=== PATIENT | female | born 1940 | race Native Hawaiian/Other Pacific Islander ===

== ENCOUNTER 2018-02-27 08:10 | Outpatient (CLI) | payer MEDICARE, OTHER | END 2018-02-27 08:11 | disposition home or self-care (01) | LOC: C.RADIC 08:10 ==

== ENCOUNTER 2018-06-17 07:57 | Inpatient (IN) | payer MEDICARE, OTHER ==
--- NOTE | 2018-06-17 08:26 | C.PDOC ---
History Of Present Illness 77 year old female with PMHx of hypertension (takes carvedilol), thyroid issue, hyperlipidemia, COPD( not on home oxygen) presents to ED with complaint of diffuse weakness. Per patient's daughter and patient, she had a PET scheduled for today at [facility] with Dr. Vásquez for elevated ESR. However, she woke up at 0500 this morning when she felt sweaty and diffusely weak. Patient states that this is a first time occurrence. Patient also complains of a mild headache. She notes that overall headache has resolved and wasn't the worse of her life with no sudden onset. Weakness is described as diffuse and non-focal. She states that her sweats have greatly improved. Patient denies slurred speech, unilateral weakness, facial droop, chest pain, constipation, diarrhea, dark/ bloody stool, vaginal discharge, rash, fever, chills, or cough. Time Seen by Provider: 06/17/18 08:08 Chief Complaint (Nursing): Medical Clearance History Per: Patient, Family (daughter) History/Exam Limitations: no limitations Onset/Duration Of Symptoms: Hrs (4) Current Symptoms Are (Timing): Better Past Medical History Reviewed: Historical Data, Nursing Documentation, Vital Signs Vital Signs: Last Vital Signs Temp Pulse 96 H 06/17/18 08:22 Resp 16 06/17/18 08:22 BP 100/59 L 06/17/18 08:22 Pulse Ox 99 06/17/18 08:22 - Medical History PMH: COPD, HTN, Hyperlipidemia Surgical History: No Surg Hx Family History: States: Unknown Family Hx Review Of Systems Constitutional: Positive for: Weakness. Negative for: Fever, Chills Eyes: Negative for: Pain, Vision Change ENT: Negative for: Ear Pain, Ear Discharge, Nose Congestion, Mouth Pain, Throat Pain, Throat Swelling Cardiovascular: Negative for: Chest Pain, Edema Respiratory: Negative for: Cough Gastrointestinal: Negative for: Nausea, Vomiting, Abdominal Pain, Diarrhea, Constipation, Melena, Hematochezia, Hematemesis Genitourinary: Negative for: Dysuria, Frequency, Hematuria, Vaginal Discharge, Rash Musculoskeletal: Negative for: Neck Pain, Shoulder Pain, Arm Pain Skin: Negative for: Rash Neurological: Negative for: Numbness, Change in Speech, Confusion, Seizures, Altered Mental Status, Headache, Other (unilateral weakness, slurred speech, facial droop) Psych: Negative for: Anxiety, Depression, Psychosis Physical Exam - Physical Exam Appears: Non-toxic, No Acute Distress Skin: Warm, Dry Head: Atraumatic, Normacephalic Eye(s): bilateral: Normal Inspection, PERRL, EOMI Oral Mucosa: Moist Neck: Normal ROM, Trachea Midline, Supple, No Other ( meningeal signs- negative kernig's and brudzinskis) Chest: Symmetrical, No Deformity Cardiovascular: Rhythm Irregular, Other (irregularly irregular) Respiratory: Normal Breath Sounds, No Decreased Breath Sounds, No Accessory Muscle Use, No Rales, No Rhonchi, No Stridor, No Wheezing Gastrointestinal/Abdominal: Normal Exam, Soft, No Tenderness, No Mass, No Distention Back: Normal Inspection, No CVA Tenderness, No Vertebral Tenderness Extremity: Normal ROM, Capillary Refill (<2 seconds), No Swelling (bilateral lower extremities) Extremity: Bilateral: Atraumatic, Normal Color And Temperature, Normal ROM Pulses: Left Dorsalis Pedis: Normal, Right Dorsalis Pedis: Normal Neurological/Psych: Oriented x3, Normal Speech, Normal Cognition, Normal Cranial Nerves, No Cerebellar Signs, Normal Motor, Normal Sensation, Normal Reflexes Gait: Steady Other Neurological Findings: No Facial Palsy ED Course And Treatment - Laboratory Results Result Diagrams: 06/17/18 10:08 06/17/18 10:08 ECG: Interpreted By Me, Viewed By Me ECG Rhythm: Atrial Fibrillation Rate From EC O2 Sat by Pulse Oximetry: 99 (in RA) Pulse Ox Interpretation: Normal Medical Decision Making Medical Decision Making: Impression: 77 year old female with PMHx of hypertension (carvadilol), thyroid issue, hyperlipidemia, COPD( not on home oxygen) presents to ED with complaint of diffuse weakness. Likely new onset afib given no previous hx of afib. Pt not in afib w/ rvr and pressures mildly decreased, will give gentle fluids and seek labs, imaging and admission. Initial Plan: Type and Screen VBG Head CT EKG Labs ordered with cardiac enzymes IV fluids blood culture UA glucose POC EK bpm. A-fib. No STEMI. No previous comparison. MDM: New onset A-fib. Infectious vs electrolyte abnormalities. 1020 CBC largely unremarkable CTH unremarkable paged Dr. Damon for admission Pt in NAD 1040 Appreciate consult w/ Dr. Nelson: we are to consult Dr. Carlos (CARDS) She accepts admission to her service Pt in NAD agreeable to plan paged Dr. Carlos [phone] Carlos. [phone] appreciate consult w/ Dr. Carlos: Heparin drip ordered. Pt in NAD, agreeable to plan Disposition - Disposition Disposition: HOSPITALIZED Disposition Time: 10:40 Condition: STABLE - Clinical Impression Clinical Impression: Afib - Scribe Statement The provider has reviewed the documentation as recorded by the Scribe (Tiffany Arcos) All medical record entries made by the Scribe were at my direction and personally dictated by me. I have reviewed the chart and agree that the record accurately reflects my personal performance of the history, physical exam, medical decision making, and the department course for this patient. I have also personally directed, reviewed, and agree with the discharge instructions and disposition.
[2018-06-17] MEDS ORDERED: Sodium Chloride 0.9% 1,000 ML ONE (09:28)
--- NOTE | 2018-06-17 09:46 | CT ---
Date of service: 06/17/2018 PROCEDURE: CT HEAD WITHOUT CONTRAST. HISTORY: Headache COMPARISON: None available. TECHNIQUE: Axial computed tomography images were obtained through the head/brain without intravenous contrast. Radiation dose: Total exam DLP = 869.99 mGy-cm. This CT exam was performed using one or more of the following dose reduction techniques: Automated exposure control, adjustment of the mA and/or kV according to patient size, and/or use of iterative reconstruction technique. FINDINGS: HEMORRHAGE: No intracranial hemorrhage. BRAIN: There are mild chronic microangiopathic changes. There is no mass, mass effect or abnormal extra-axial fluid collection. There is no territorial infarction. The midline sagittal structures are normal. There are senile symmetric bilateral basal ganglia calcifications. There are coarse atherosclerotic calcifications in the cavernous carotid arteries. VENTRICLES: There is mild age-related global parenchymal volume loss and proportionate enlargement of the ventricles and cortical sulci. CALVARIUM: There is no calvarial fracture or extracranial soft tissue swelling. PARANASAL SINUSES: Predominantly clear. MASTOID AIR CELLS: Predominantly clear. OTHER FINDINGS: None. IMPRESSION: No acute intracranial abnormality. Mild chronic microangiopathic changes and mild age-related global parenchymal volume loss.
[2018-06-17 09:53] LABS: VENOUS BLOOD GAS BASE EXCESS -1.1 mmol/L (0.0-2.0); VENOUS BLOOD GAS PCO2 48 mmHg (40-60); VENOUS BLOOD GAS PO2 21 mm/Hg (30-55); VENOUS BLOOD PH 7.33 (7.32-7.43)
[2018-06-17] MEDS: Sodium Chloride 0.9% 1,000 ML IV SCH ×2 (10:10→21:00)
[2018-06-17 10:13] LABS: BASO % 0.4 % (0.0-2.0); EOS % 0.8 % (0.0-4.0); HEMOGLOBIN 10.8 g/dL (11.0-16.0); LYMPH # 0.7 K/uL (1.0-4.3); MEAN CELL VOLUME 105.3 fL (81.0-99.0); MEAN CORPUSCULAR HEMOGLOBIN 35.6 pg (27.0-31.0); MEAN CORPUSCULAR HGB CONC 33.8 g/dL (33.0-37.0); MEAN PLATELET VOLUME 7.7 fL (7.2-11.7); MONO # 0.3 K/uL (0.0-0.8); MONO % 5.3 % (0.0-10.0); NEUT # 4.8 K/uL (1.8-7.0); NEUT % 81.5 % (50.0-75.0); RBC 3.03 Mil/uL (3.80-5.20); RED CELL DISTRIBUTION WIDTH 12.9 % (11.5-14.5); WHITE BLOOD COUNT 5.9 K/uL (4.8-10.8)
[2018-06-17 10:20] LABS: INR 1.1; PROTHROMBIN TIME 12.1 SECONDS (9.7-12.2)
[2018-06-17 10:26] LABS: ALB/GLOB RATIO 1.1 (1.0-2.1); ALBUMIN 3.9 g/dL (3.5-5.0); ALT/SGPT 128 U/L (9-52); AST/SGOT 282 U/L (14-36); BLOOD UREA NITROGEN 28 mg/dL (7-17); CALCIUM 8.9 mg/dl (8.6-10.4); GFR NON-AFRICAN AMERICAN 53; LIPASE 210 U/L (23-300)
[2018-06-17 10:37] LABS: B-TYPE NATRIURETIC PEPTIDE 551 pg/mL (0-900)
[2018-06-17 10:53] LABS: SQUAMOUS EPITHIAL < 1 /hpf (0-5); URINE BILIRUBIN NEGATIVE (NEGATIVE); URINE BLOOD NEGATIVE (NEGATIVE); URINE CLARITY Clear (Clear); URINE COLOR Yellow (YELLOW); URINE GLUCOSE (UA) NORMAL (Normal); URINE LEUKOCYTE ESTERASE NEG Leu/uL (Negative); URINE PROTEIN NEGATIVE (NEGATIVE); URINE UROBILINOGEN NORMAL mg/dL (0.2-1.0)
--- NOTE | 2018-06-17 11:50 | CP.PCM.CON ---
History of Present Illness - History of Present Illness History of Present Illness: Consultation for evaluation of afib HPI: 77-year-old female with past medical history significant for hypertension on carvedilol hypothyroidism hyperlipidemia COPD presented to the emergency room with complaint of diffuse weakness patient apparently was scheduled for a PET scan by Dr. Wilson for elevated ESR woke up in the morning he had diffuse diaphoresis and generalized weakness on presentation to the ER was noted to be in new onset atrial fibrillation and therefore was admitted for which we are being consulted. Over the course of last few weeks she is noticed increasing worsening diaphoresis with activity. Review of Systems - Review of Systems Systems not reviewed;Unavailable: Acuity of Condition - Constitutional Constitutional: As Per HPI - EENT Eyes: As Per HPI Ears: As Per HPI Nose/Mouth/Throat: As Per HPI - Breasts Breasts: As Per HPI - Cardiovascular Cardiovascular: As Per HPI - Respiratory Respiratory: As Per HPI - Gastrointestinal Gastrointestinal: As Per HPI - Genitourinary Genitourinary: As Per HPI - Reproductive: Female Reproductive:Female: As Per HPI - Menstruation Menstruation: As Per HPI - Musculoskeletal Musculoskeletal: As Per HPI - Integumentary Integumentary: As Per HPI - Neurological Neurological: As Per HPI - Psychiatric Psychiatric: As Per HPI - Endocrine Endocrine: As Per HPI - Hematologic/Lymphatic Hematologic: As Per HPI Past Patient History - Past Social History Smoking Status: Never Smoked - CARDIAC Hx Hypertension: Yes - PULMONARY Hx Chronic Obstructive Pulmonary Disease (COPD): Yes - ENDOCRINE/METABOLIC Hx Hyperthyroidism: Yes - PSYCHIATRIC Hx Substance Use: No - SURGICAL HISTORY Hx Cholecystectomy: Yes Hx Thyroidectomy: Yes - ANESTHESIA Hx Anesthesia: No Hx Anesthesia Reactions: No Meds Allergies/Adverse Reactions: Allergies Allergy/AdvReac Type Severity Reaction Status Date / Time No Known Allergies Allergy Unverified 06/17/18 08:25 - Medications Medications: Current Medications Sodium Chloride (Sodium Chloride 0.9%) 1,000 mls @ 100 mls/hr IV .Q10H JAYCEE Last Admin: 06/17/18 10:10 Dose: 100 mls/hr Heparin Sodium/Sodium Chloride (Heparin 93867 Units/250ml 1/2 Normal Saline) 25,000 units in 250 mls @ 5.879 mls/hr IV .Q24H PRN; Protocol PRN Reason: ADJUST RATE PER PROTOCOL Physical Exam - Constitutional Appears: Well - Head Exam Head Exam: ATRAUMATIC, NORMAL INSPECTION, NORMOCEPHALIC - Eye Exam Eye Exam: EOMI, Normal appearance, PERRL Pupil Exam: NORMAL ACCOMODATION, PERRL - ENT Exam ENT Exam: Mucous Membranes Moist, Normal Exam - Neck Exam Neck exam: Positive for: Normal Inspection - Respiratory Exam Respiratory Exam: Clear to Auscultation Bilateral, NORMAL BREATHING PATTERN - Cardiovascular Exam Cardiovascular Exam: Irregular Rhythm, +S1, +S2, Systolic Murmur - GI/Abdominal Exam GI & Abdominal Exam: Normal Bowel Sounds, Soft. absent: Tenderness - Extremities Exam Extremities exam: Positive for: normal inspection - Back Exam Back exam: NORMAL INSPECTION - Neurological Exam Neurological exam: Alert, CN II-XII Intact, Normal Gait, Oriented x3, Reflexes Normal - Psychiatric Exam Psychiatric exam: Normal Affect, Normal Mood - Skin Skin Exam: Dry, Intact, Normal Color, Warm Results - Vital Signs Recent Vital Signs: Last Vital Signs Temp 97.5 F L 06/17/18 10:00 Pulse 86 06/17/18 10:46 Resp 20 06/17/18 10:46 BP 90/54 L 06/17/18 10:46 Pulse Ox 99 06/17/18 11:17 - Labs Result Diagrams: 06/17/18 10:08 06/17/18 10:08 Labs: Laboratory Results - last 24 hr 06/17/18 06/17/18 06/17/18 08:16 09:49 10:08 WBC 5.9 RBC 3.03 L Hgb 10.8 L Hct 31.9 L MCV 105.3 H MCH 35.6 H MCHC 33.8 RDW 12.9 Plt Count 164 MPV 7.7 Neut % (Auto) 81.5 H Lymph % (Auto) 12.0 L [place] % (Auto) 5.3 Eos % (Auto) 0.8 Baso % (Auto) 0.4 Neut # (Auto) 4.8 Lymph # (Auto) 0.7 L [place] # (Auto) 0.3 Eos # (Auto) 0.0 Baso # (Auto) 0.0 Differential Comment PT INR APTT pO2 21 L VBG pH 7.33 VBG pCO2 48 VBG HCO3 22.2 VBG Total CO2 26.8 VBG O2 Sat (Calc) 37.3 L VBG Base Excess -1.1 L VBG Potassium 4.4 Sodium 134.0 Chloride 102.0 Glucose 152 H Lactate 1.6 Potassium Carbon Dioxide Anion Gap BUN Creatinine Est GFR ( Amer) Est GFR (Non-Af Amer) POC Glucose (mg/dL) 198 H Random Glucose Calcium Magnesium Total Bilirubin AST ALT Alkaline Phosphatase Troponin I NT-Pro-B Natriuret Pep Total Protein Albumin Globulin Albumin/Globulin Ratio Lipase TSH 3rd Generation Venous Blood Potassium 4.4 Urine Color Urine Clarity Urine pH Ur Specific [place] Urine Protein Urine Glucose (UA) Urine Ketones Urine Blood Urine Nitrate Urine Bilirubin Urine Urobilinogen Ur Leukocyte Esterase Urine WBC (Auto) Urine RBC (Auto) Ur Squamous Epith Cells Blood Type Antibody Screen 06/17/18 06/17/18 06/17/18 10:08 10:08 10:08 WBC RBC Hgb Hct MCV MCH MCHC RDW Plt Count MPV Neut % (Auto) Lymph % (Auto) Ferry % (Auto) Eos % (Auto) Baso % (Auto) Neut # (Auto) Lymph # (Auto) Ferry # (Auto) Eos # (Auto) Baso # (Auto) Differential Comment PT 12.1 INR 1.1 APTT 48.0 H pO2 VBG pH VBG pCO2 VBG HCO3 VBG Total CO2 VBG O2 Sat (Calc) VBG Base Excess VBG Potassium Sodium 134 Chloride 100 Glucose Lactate Potassium 4.2 Carbon Dioxide 23 Anion Gap 15 BUN 28 H Creatinine 1.0 Est GFR ( Amer) > 60 Est GFR (Non-Af Amer) 53 POC Glucose (mg/dL) Random Glucose 148 H Calcium 8.9 Magnesium 2.0 Total Bilirubin 0.6 AST 282 H ALT 128 H Alkaline Phosphatase 105 Troponin I < 0.0120 NT-Pro-B Natriuret Pep 551 Total Protein 7.4 Albumin 3.9 Globulin 3.5 Albumin/Globulin Ratio 1.1 Lipase 210 TSH 3rd Generation 2.76 Venous Blood Potassium Urine Color Urine Clarity Urine pH Ur Specific [place] Urine Protein Urine Glucose (UA) Urine Ketones Urine Blood Urine Nitrate Urine Bilirubin Urine Urobilinogen Ur Leukocyte Esterase Urine WBC (Auto) Urine RBC (Auto) Ur Squamous Epith Cells Blood Type O POSITIVE Antibody Screen Negative 06/17/18 10:46 WBC RBC Hgb Hct MCV MCH MCHC RDW Plt Count MPV Neut % (Auto) Lymph % (Auto) Ferry % (Auto) Eos % (Auto) Baso % (Auto) Neut # (Auto) Lymph # (Auto) [place] # (Auto) Eos # (Auto) Baso # (Auto) Differential Comment PT INR APTT pO2 VBG pH VBG pCO2 VBG HCO3 VBG Total CO2 VBG O2 Sat (Calc) VBG Base Excess VBG Potassium Sodium Chloride Glucose Lactate Potassium Carbon Dioxide Anion Gap BUN Creatinine Est GFR ( Amer) Est GFR (Non-Af Amer) POC Glucose (mg/dL) Random Glucose Calcium Magnesium Total Bilirubin AST ALT Alkaline Phosphatase Troponin I NT-Pro-B Natriuret Pep Total Protein Albumin Globulin Albumin/Globulin Ratio Lipase TSH 3rd Generation Venous Blood Potassium Urine Color Yellow Urine Clarity Clear Urine pH 5.0 Ur Specific [place] 1.005 Urine Protein Negative Urine Glucose (UA) Normal Urine Ketones Trace Urine Blood Negative Urine Nitrate Negative Urine Bilirubin Negative Urine Urobilinogen Normal Ur Leukocyte Esterase Neg Urine WBC (Auto) < 1 Urine RBC (Auto) < 1 Ur Squamous Epith Cells < 1 Blood Type Antibody Screen Assessment & Plan (1) Afib Assessment and Plan: rx with IV heparin echo telemetry stress test cont coreg Status: Acute (2) HTN (hypertension) Assessment and Plan: cont coreg Status: Acute (3) Dyslipidemia Assessment and Plan: cont statins Status: Acute (4) Diaphoresis Status: Acute (5) Weakness Status: Acute
[2018-06-17] MEDS ORDERED: Albuterol 0.083% Inhal Sol (2.5 mg/3 mL) UD INH ONE (11:51)
[2018-06-17] MEDS: Levothyroxine 25 MCG TAB PO SCH (12:45)
[2018-06-17] MEDS: Heparin25000 units/250ml 1/2NS 25,000 UNITS/250 ML BAG IV PRN ×2 (12:55→23:55)
[2018-06-17 16:52] VITALS: RESP 20
[2018-06-17] MEDS ORDERED: Ipratropium 0.02% Inhal Soln (0.5 mg/2.5 ml) UD IH SCH (20:00)
[2018-06-18] MEDS ORDERED: Caffeine Citrated **INJ** 20 MG/ML IV ONE (09:29)
[2018-06-18] MEDS: Multivitamin With Minerals Tab PO SCH (10:03)
[2018-06-18] MEDS: Levothyroxine 25 MCG TAB PO SCH (10:14)
[2018-06-18] MEDS: Arformoterol 15 mcg/2 ml Inh Sol INH SCH ×2 (10:40→21:14)
--- NOTE | 2018-06-18 14:58 | CP.PCM.PN ---
Subjective - Date & Time of Evaluation Date of Evaluation: 06/18/18 Time of Evaluation: 14:56 - Subjective Subjective: AST/ALT elevated s/p [place] stress test Objective - Vital Signs/Intake and Output Vital Signs (last 24 hours): Temp Pulse Resp BP Pulse Ox 98.4 F 74 20 129/64 99 06/18/18 07:20 06/18/18 10:40 06/18/18 07:20 06/18/18 10:10 06/18/18 12:11 Intake and Output: 06/18/18 06/18/18 06:59 18:59 Intake Total 250 Balance 250 - Medications Medications: Current Medications Amlodipine Besylate (Norvasc) 5 mg PO DAILY [facility] Last Admin: 06/18/18 10:03 Dose: 5 mg Arformoterol Tartrate (Brovana) 15 mcg INH RQ12@1000,2200 [facility] Last Admin: 06/18/18 10:40 Dose: 15 mcg Aspirin (Aspirin Chewable) 81 mg PO DAILY [facility] Last Admin: 06/18/18 10:03 Dose: 81 mg Benzonatate (Tessalon Perles) 200 mg PO BID [facility] Last Admin: 06/18/18 10:03 Dose: 200 mg Carvedilol (Coreg) 25 mg PO DAILY [facility] Last Admin: 06/18/18 10:10 Dose: 25 mg Sodium Chloride (Sodium Chloride 0.9%) 1,000 mls @ 100 mls/hr IV .Q10H [facility] Last Admin: 06/17/18 21:00 Dose: 100 mls/hr Heparin Sodium/Sodium Chloride (Heparin 73897 Units/250ml 1/2 Normal Saline) 25,000 units in 250 mls @ 5.879 mls/hr IV .Q24H PRN; Protocol PRN Reason: ADJUST RATE PER PROTOCOL Last Admin: 06/17/18 23:55 Dose: 9 units/kg/hr, 4.409 mls/hr Ipratropium [place] (Atrovent) 1 mg IH RBID [facility] Levothyroxine Sodium (Synthroid) 25 mcg PO DAILY [facility] Last Admin: 06/18/18 10:14 Dose: 25 mcg Multivitamins/Minerals (Therapeutic-M Tab) 1 tab PO DAILY [facility] Last Admin: 06/18/18 10:03 Dose: 1 tab Rosuvastatin Calcium (Crestor) 5 mg PO HS [facility] Last Admin: 06/17/18 22:32 Dose: 5 mg - Labs Labs: 06/17/18 10:08 06/17/18 10:08 PT 12.1 SECONDS (9.7-12.2) 06/17/18 10:08 INR 1.1 06/17/18 10:08 APTT 83.0 SECONDS (21-34) H D 06/18/18 06:32 - Constitutional Appears: Well - Head Exam Head Exam: ATRAUMATIC, NORMAL INSPECTION, NORMOCEPHALIC - Eye Exam Eye Exam: EOMI, Normal appearance, PERRL Pupil Exam: NORMAL ACCOMODATION, PERRL - ENT Exam ENT Exam: Mucous Membranes Moist, Normal Exam - Neck Exam Neck Exam: Full ROM, Normal Inspection. absent: Lymphadenopathy - Respiratory Exam Respiratory Exam: Clear to Ausculation Bilateral, NORMAL BREATHING PATTERN - Cardiovascular Exam Cardiovascular Exam: REGULAR RHYTHM, +S1, +S2. absent: Murmur - GI/Abdominal Exam GI & Abdominal Exam: Soft, Normal Bowel Sounds. absent: Tenderness - Extremities Exam Extremities Exam: Full ROM, Normal Capillary Refill, Normal Inspection. absent: Joint Swelling, Pedal Edema - Back Exam Back Exam: NORMAL INSPECTION - Neurological Exam Neurological Exam: Alert, Awake, CN II-XII Intact, Normal Gait, Oriented x3 - Psychiatric Exam Psychiatric exam: Normal Affect, Normal Mood - Skin Skin Exam: Dry, Intact, Normal Color, Warm Assessment and Plan (1) Afib Assessment & Plan: bb cont IV heparin Status: Acute (2) HTN (hypertension) Status: Acute (3) Dyslipidemia Status: Acute (4) Diaphoresis Assessment & Plan: stress test Status: Acute (5) Weakness Status: Acute (6) Elevated LFTs Assessment & Plan: Gi eval Status: Acute
[2018-06-18 17:39] LABS: HDL CHOLESTEROL 49 mg/dL (30-70)
[2018-06-18 17:50] LABS: LDL CHOLESTEROL 49 mg/dL (0-129)
[2018-06-18 18:28] LABS: IRON 90 ug/dL (37-170)
[2018-06-18 18:38] LABS: % IRON SATURATION 33 (20-55); TOTAL IRON BINDING CAPACITY 272 ug/dL (250-450)
[2018-06-18 18:46] LABS: FOLATE > 20.0 ng/mL
--- NOTE | 2018-06-19 03:45 | CARD ---
APPROVED REPORT Date of service: 06/18/2018 EXAM: Two-dimensional and M-mode echocardiogram with Doppler and color Doppler. Other Information Quality : GoodRhythm : INDICATION Atrial Fibrillation COPD RISK FACTORS Hypertension Hyperlipidemia 2D DIMENSIONS IVSd0.8 (0.7-1.1cm)LVDd3.7 (3.9-5.9cm) PWd0.8 (0.7-1.1cm)LA [id number] (18-58mL) LVDs2.2 (2.5-4.0cm)FS (%) 40.4 % LVEF (%)71.9 (>50%)LVEF (Carpio's)69 % M-Mode DIMENSIONS Left Atrium (MM)1.57 (2.5-4.0cm)IVSd1.10 (0.7-1.1cm) Aortic Root2.80 (2.2-3.7cm)LVDd3.76 (4.0-5.6cm) Aortic Cusp Exc.1.53 (1.5-2.0cm)PWd0.78 (0.7-1.1cm) FS (%) 41 %LVDs2.21 (2.0-3.8cm) LVEF (%)73 (>50%) Mitral Valve MV E Zfcynlbm39.3cm/sMV A Kdavtzyt70.4cm/sE/A ratio0.8 TDI Lateral E' Peak V6.61cm/sMedial E' Peak V5.06cm/sE/Lateral E'9.9 E/Medial E'12.9 Tricuspid Valve TR Peak [id number]/sTR Peak Gr.[id number] LEFT VENTRICLE The left ventricle is normal size. There is normal left ventricular wall thickness. Left ventricle systolic function is normal. The Ejection Fraction is 65-70%. There is normal LV segmental wall motion. Tissue Doppler imaging reveals abnormal left ventricular diastolic dysfunction. RIGHT VENTRICLE The right ventricle is normal size. There is normal right ventricular wall thickness. The right ventricular systolic function is normal. ATRIA The left atrium size is normal. The right atrium size is normal. The interatrial septum is intact with no evidence for an atrial septal defect. AORTIC VALVE The aortic valve is normal in structure. No aortic regurgitation is present. There is no aortic valvular stenosis. MITRAL VALVE A mild mitral valve prolapse is present. There is no mitral valve stenosis. Mitral regurgitation is mild. TRICUSPID VALVE The tricuspid valve is normal in structure. There is mild tricuspid regurgitation. Right ventricular systolic pressure is estimated at 30-40 mmHg. There is mild pulmonary hypertension. PULMONIC VALVE The pulmonary valve is normal in structure. There is mild pulmonic valvular regurgitation. There is no pulmonic valvular stenosis. GREAT VESSELS The aortic root is normal in size. PERICARDIAL EFFUSION There is no significant pericardial effusion. <Conclusion> Left ventricle systolic function is normal. The Ejection Fraction is 65-70%. Diastolic dysfunction. No aortic regurgitation is present. A mild mitral valve prolapse is present. Mitral regurgitation is mild. There is mild tricuspid regurgitation. There is mild pulmonary hypertension. There is mild pulmonic valvular regurgitation.
[2018-06-19] MEDS ORDERED: Vancomycin 1 gm/NS 200 ml 1 GM/200 ML BAG IVPB STA (04:20)
[2018-06-19] MEDS: Sodium Chloride 0.9% 1,000 ML IV SCH ×2 (04:38→11:15)
--- NOTE | 2018-06-19 06:39 | HP ---
This patient was seen and examined at the bedside in her room on 06/18/2018. HISTORY OF PRESENT ILLNESS: The patient is a 77-year-old female with a history of hypertension, placed carvedilol, thyroid problem, hypercholesterolemia, COPD. Came to the emergency department with complaining of dizziness and weakness. Per the patient's daughter and the patient, she had a PET scan scheduled for today at [facility] with Dr. Vásquez for elevated ESR; however, she woke up this morning and felt sweaty and diffusely weak. The patient states that this is the first time occurrence. The patient is also complaining of mild headache. She noticed that overall headache has resolved, and she was not having fevers of her life with no sudden onset. Weakness is described as diffuse and nonfocal. She states that her sweats have greatly improved. The patient denies slurring of speech. The patient has no constipation, diarrhea, dark bloody stool. No discharge. PAST MEDICAL HISTORY: COPD, hypertension, hypercholesterolemia. ALLERGIES: THE PATIENT IS NOT ALLERGIC TO ANY MEDICATIONS. FAMILY HISTORY: Father and mother noncontributory. HABITS: No smoking. No drugs. No ethanol. REVIEW OF SYSTEMS: The patient was seen and examined at the bedside in her room. Looking comfortable. No fever. No chills. No headache or dizziness at the moment. No chest pain. No palpitations. No hematuria or hematochezia. PHYSICAL EXAMINATION: VITAL SIGNS: Temperature 96, pulse 99, respiratory rate 15, blood pressure 100/59. HEENT: Head: Normocephalic and atraumatic. Eyes: PERRLA. Extraocular movements intact. Conjunctivae clear. Nose patent. Mucous membranes moist. NECK: Supple. No carotid bruit. No JVD or thyromegaly. CHEST: Bilaterally symmetrical. HEART: S1 and S2 positive. LUNGS: Clear to auscultation. ABDOMEN: Soft. Bowel sounds present. No organomegaly. EXTREMITIES: No edema. No cyanosis. NEUROLOGIC: The patient is awake and alert. Moving all four extremities. No focal deficits. LABORATORY DATA: White blood cells 5.9, hemoglobin 10.8, hematocrit 31.9, and platelets 154. Sodium 134, potassium 4.2, BUN 20, creatinine 1, glucose 148. AST 282, ALT 128. ASSESSMENT AND PLAN: The patient is a 77-year-old female with hyperglycemia, abnormal liver function tests, anemia, status post myocardial stress test by Dr. Saud Carlos, history of hypertension, dyslipidemia, diaphoresis, weakness, elevated liver function tests, atrial fibrillation, looks like new onset. Stress tests are done, but results are pending. CAT scan of the head is done. Gastrointestinal and deep venous thrombosis prophylaxis. Discussion done with the patient and nursing staff. Repeat labs. We will follow up. Sumi Damon MD
[2018-06-19 07:29] LABS: HEMOGLOBIN 10.5 g/dL (11.0-16.0); MEAN CELL VOLUME 104.8 fL (81.0-99.0); MEAN CORPUSCULAR HEMOGLOBIN 35.5 pg (27.0-31.0); MEAN CORPUSCULAR HGB CONC 33.9 g/dL (33.0-37.0); RBC 2.95 Mil/uL (3.80-5.20); RED CELL DISTRIBUTION WIDTH 13.2 % (11.5-14.5); WHITE BLOOD COUNT 4.7 K/uL (4.8-10.8)
[2018-06-19 07:53] LABS: BLOOD UREA NITROGEN 7 mg/dL (7-17); CALCIUM 8.2 mg/dl (8.6-10.4); GFR NON-AFRICAN AMERICAN > 60
--- NOTE | 2018-06-19 08:21 | CP.PCM.PN ---
<Courtney Wilson L - Last Filed: 06/20/18 06:35> Subjective - Date & Time of Evaluation Date of Evaluation: 06/19/18 Time of Evaluation: 08:16 - Subjective Subjective: Resident Progress Note for Dr. Carlos Patient examined at bedside No acute events overnight. States she feels well. Denies weakness, dyspnea. Objective - Vital Signs/Intake and Output Vital Signs (last 24 hours): Temp Pulse Resp BP Pulse Ox 98.2 F 72 20 126/70 100 06/19/18 07:00 06/19/18 07:00 06/19/18 07:00 06/19/18 07:00 06/19/18 07:00 - Medications Medications: Current Medications Amlodipine Besylate (Norvasc) 5 mg PO DAILY [facility] Last Admin: 06/18/18 10:03 Dose: 5 mg Arformoterol Tartrate (Brovana) 15 mcg INH RQ12@1000,2200 [facility] Last Admin: 06/18/18 21:14 Dose: 15 mcg Aspirin (Aspirin Chewable) 81 mg PO DAILY [facility] Last Admin: 06/18/18 10:03 Dose: 81 mg Benzonatate (Tessalon Perles) 200 mg PO BID [facility] Last Admin: 06/18/18 17:33 Dose: 200 mg Carvedilol (Coreg) 25 mg PO DAILY [facility] Last Admin: 06/18/18 10:10 Dose: 25 mg Sodium Chloride (Sodium Chloride 0.9%) 1,000 mls @ 100 mls/hr IV .Q10H [facility] Last Admin: 06/19/18 04:38 Dose: 100 mls/hr Heparin Sodium/Sodium Chloride (Heparin 29126 Units/250ml 1/2 Normal Saline) 25,000 units in 250 mls @ 5.879 mls/hr IV .Q24H PRN; Protocol PRN Reason: ADJUST RATE PER PROTOCOL Last Admin: 06/17/18 23:55 Dose: 9 units/kg/hr, 4.409 mls/hr Ceftriaxone Sodium 1 gm/ (Sodium Chloride) 100 mls @ 100 mls/hr IVPB DAILY [facility]; Protocol Ipratropium [place] (Atrovent) 1 mg IH RBID [facility] Levothyroxine Sodium (Synthroid) 25 mcg PO DAILY [facility] Last Admin: 06/18/18 10:14 Dose: 25 mcg Multivitamins/Minerals (Therapeutic-M Tab) 1 tab PO DAILY [facility] Last Admin: 06/18/18 10:03 Dose: 1 tab Rosuvastatin Calcium (Crestor) 5 mg PO HS [facility] Last Admin: 06/18/18 22:02 Dose: 5 mg - Labs Labs: 06/19/18 07:17 06/19/18 07:17 PT 12.1 SECONDS (9.7-12.2) 06/17/18 10:08 INR 1.1 06/17/18 10:08 APTT 74.0 SECONDS (21-34) H 06/19/18 07:17 - Constitutional Appears: Non-toxic, No Acute Distress - Head Exam Head Exam: ATRAUMATIC, NORMOCEPHALIC - Eye Exam Eye Exam: EOMI, Normal appearance - ENT Exam ENT Exam: Mucous Membranes Moist - Respiratory Exam Respiratory Exam: Clear to Auscultation Bilateral, NORMAL BREATHING PATTERN - Cardiovascular Exam Cardiovascular Exam: Irregular rhythm, +S1, +S2. absent: Murmur - GI/Abdominal Exam GI & Abdominal Exam: Soft, Normal Bowel Sounds. absent: Tenderness - Extremities Exam Extremities Exam: Full ROM, Normal Capillary Refill, Normal Inspection. absent: Joint Swelling, Pedal Edema - Neurological Exam Neurological Exam: Alert, Awake, CN II-XII Intact, Oriented x3 - Psychiatric Exam Psychiatric exam: Normal Affect, Normal Mood - Skin Skin Exam: Dry, Intact, Normal Color, Warm Assessment and Plan - Assessment and Plan (Free Text) Plan: Atrial fibrillation - on heparin drip - xarelto 15 mg daily on discharge - stress test normal Hypertension - Coreg - Norvasc Dyslipidemia - Rosuvastatin Hypothyroidism - Synthroid Transaminitis - ID following - hepatitis panel <Saud Carlos - Last Filed: 06/20/18 16:39> Objective - Vital Signs/Intake and Output Vital Signs (last 24 hours): Temp Pulse Resp BP Pulse Ox 98.3 F 85 20 130/75 99 06/20/18 15:42 06/20/18 15:42 06/20/18 15:42 06/20/18 15:42 06/20/18 15:42 Intake and Output: 06/20/18 06/20/18 06:59 18:59 Intake Total 1400 Balance 1400 - Medications Medications: Current Medications Amlodipine Besylate (Norvasc) 5 mg PO DAILY [facility] Last Admin: 06/20/18 10:49 Dose: 5 mg Arformoterol Tartrate (Brovana) 15 mcg INH RQ12@1000,2200 [facility] Last Admin: 06/20/18 08:18 Dose: 15 mcg Aspirin (Aspirin Chewable) 81 mg PO DAILY [facility] Last Admin: 06/20/18 10:49 Dose: 81 mg Benzonatate (Tessalon Perles) 200 mg PO BID [facility] Last Admin: 06/20/18 10:49 Dose: 200 mg Carvedilol (Coreg) 25 mg PO DAILY [facility] Last Admin: 06/20/18 10:50 Dose: 25 mg Ceftriaxone Sodium 1 gm/ (Sodium Chloride) 100 mls @ 100 mls/hr IVPB DAILY [facility]; Protocol Last Admin: 06/20/18 10:47 Dose: 100 mls/hr Ipratropium [place] (Atrovent) 1 mg IH RBID [facility] Last Admin: 06/20/18 08:19 Dose: 1 mg Levothyroxine Sodium (Synthroid) 25 mcg PO 0630 [facility] Last Admin: 06/20/18 05:56 Dose: 25 mcg Multivitamins/Minerals (Therapeutic-M Tab) 1 tab PO DAILY [facility] Last Admin: 06/20/18 10:49 Dose: 1 tab Polyethylene Glycol (Miralax) 17 gm PO DAILY [facility] Last Admin: 06/20/18 10:55 Dose: 17 gm Rivaroxaban (Xarelto) 15 mg PO DAILY@1800 [facility] Last Admin: 06/19/18 17:23 Dose: 15 mg Rosuvastatin Calcium (Crestor) 5 mg PO HS [facility] Last Admin: 06/19/18 21:11 Dose: 5 mg - Labs Labs: 06/20/18 07:06 06/20/18 07:06 PT 12.1 SECONDS (9.7-12.2) 06/17/18 10:08 INR 1.1 06/17/18 10:08 APTT 74.0 SECONDS (21-34) H 06/19/18 07:17 Assessment and Plan (1) Afib Status: Acute (2) HTN (hypertension) Status: Acute (3) Dyslipidemia Status: Acute (4) Diaphoresis Status: Acute (5) Weakness Status: Acute (6) Elevated LFTs Status: Acute Attending/Attestation - Attestation I have personally seen and examined this patient.: Yes I have fully participated in the care of the patient.: Yes I have reviewed all pertinent clinical information, including history, physical exam and plan: Yes
[2018-06-19 08:31] LABS: HEPATITIS B SURFACE AG Negative (NEGATIVE)
[2018-06-19 08:36] LABS: HEPATITIS A IGM NEGATIVE (NEGATIVE); HEPATITIS B CORE AB NEGATIVE (NEGATIVE)
[2018-06-19 08:48] LABS: HEPATITIS C ANTIBODY NEGATIVE (NEGATIVE)
[2018-06-19] MEDS: Levothyroxine 25 MCG TAB PO SCH (09:02)
[2018-06-19] MEDS: Arformoterol 15 mcg/2 ml Inh Sol INH SCH (10:20)
[2018-06-19] MEDS: Multivitamin With Minerals Tab PO SCH (10:28)
[2018-06-19 11:42] LABS: URINE BILIRUBIN NEGATIVE (NEGATIVE); URINE CLARITY Clear (Clear); URINE COLOR STRAW (YELLOW); URINE GLUCOSE (UA) Normal (Normal)
[2018-06-19 11:44] LABS: SQUAMOUS EPITHIAL < 1 /hpf (0-5); URINE BLOOD NEGATIVE (NEGATIVE); URINE LEUKOCYTE ESTERASE 1+ Leu/uL (Negative); URINE PROTEIN NEGATIVE (NEGATIVE); URINE UROBILINOGEN Normal mg/dL (0.2-1.0)
[2018-06-19 11:45] LABS: URINE BACTERIA RARE (<OCC)
--- NOTE | 2018-06-19 12:48 | CP.PCM.PN ---
Subjective - Date & Time of Evaluation Date of Evaluation: 06/19/18 Time of Evaluation: 12:45 - Subjective Subjective: stress test shows no evidence of ischemia echo normal EF LFT"s elevated Objective - Vital Signs/Intake and Output Vital Signs (last 24 hours): Temp Pulse Resp BP Pulse Ox 98.2 F 71 20 125/76 100 06/19/18 07:00 06/19/18 12:35 06/19/18 07:00 06/19/18 10:30 06/19/18 07:00 - Medications Medications: Current Medications Amlodipine Besylate (Norvasc) 5 mg PO DAILY [facility] Last Admin: 06/19/18 10:30 Dose: 5 mg Arformoterol Tartrate (Brovana) 15 mcg INH RQ12@1000,2200 [facility] Last Admin: 06/19/18 10:20 Dose: 15 mcg Aspirin (Aspirin Chewable) 81 mg PO DAILY [facility] Last Admin: 06/19/18 10:28 Dose: 81 mg Benzonatate (Tessalon Perles) 200 mg PO BID [facility] Last Admin: 06/19/18 10:28 Dose: 200 mg Carvedilol (Coreg) 25 mg PO DAILY [facility] Last Admin: 06/19/18 10:30 Dose: 25 mg Sodium Chloride (Sodium Chloride 0.9%) 1,000 mls @ 100 mls/hr IV .Q10H [facility] Last Admin: 06/19/18 04:38 Dose: 100 mls/hr Heparin Sodium/Sodium Chloride (Heparin 37472 Units/250ml 1/2 Normal Saline) 25,000 units in 250 mls @ 5.879 mls/hr IV .Q24H PRN; Protocol PRN Reason: ADJUST RATE PER PROTOCOL Last Admin: 06/17/18 23:55 Dose: 9 units/kg/hr, 4.409 mls/hr Ceftriaxone Sodium 1 gm/ (Sodium Chloride) 100 mls @ 100 mls/hr IVPB DAILY [facility]; Protocol Last Admin: 06/19/18 10:28 Dose: 100 mls/hr Ipratropium [place] (Atrovent) 1 mg IH RBID [facility] Levothyroxine Sodium (Synthroid) 25 mcg PO 0630 [facility] Last Admin: 06/19/18 09:02 Dose: 25 mcg Multivitamins/Minerals (Therapeutic-M Tab) 1 tab PO DAILY [facility] Last Admin: 06/19/18 10:28 Dose: 1 tab Rosuvastatin Calcium (Crestor) 5 mg PO HS [facility] Last Admin: 06/18/18 22:02 Dose: 5 mg - Labs Labs: 06/19/18 07:17 06/19/18 07:17 PT 12.1 SECONDS (9.7-12.2) 06/17/18 10:08 INR 1.1 06/17/18 10:08 APTT 74.0 SECONDS (21-34) H 06/19/18 07:17 - Constitutional Appears: Well - Head Exam Head Exam: ATRAUMATIC, NORMAL INSPECTION, NORMOCEPHALIC - Eye Exam Eye Exam: EOMI, Normal appearance, PERRL Pupil Exam: NORMAL ACCOMODATION, PERRL - ENT Exam ENT Exam: Mucous Membranes Moist, Normal Exam - Neck Exam Neck Exam: Full ROM, Normal Inspection. absent: Lymphadenopathy - Respiratory Exam Respiratory Exam: Clear to Ausculation Bilateral, NORMAL BREATHING PATTERN - Cardiovascular Exam Cardiovascular Exam: REGULAR RHYTHM, +S1, +S2, Murmur - GI/Abdominal Exam GI & Abdominal Exam: Soft, Normal Bowel Sounds. absent: Tenderness - Extremities Exam Extremities Exam: Full ROM, Normal Capillary Refill, Normal Inspection. absent: Joint Swelling, Pedal Edema - Back Exam Back Exam: NORMAL INSPECTION - Neurological Exam Neurological Exam: Alert, Awake, CN II-XII Intact, Normal Gait, Oriented x3 - Psychiatric Exam Psychiatric exam: Normal Affect, Normal Mood - Skin Skin Exam: Dry, Intact, Normal Color, Warm Assessment and Plan (1) Afib Assessment & Plan: change AC to PO ( xarelto 15mg dailiy) dc asa cont bb outpt f/u in 2 weeks Status: Acute (2) HTN (hypertension) Assessment & Plan: cont coreg and norvasc Status: Acute (3) Dyslipidemia Assessment & Plan: cont statins Status: Acute (4) Diaphoresis Status: Acute (5) Weakness Status: Acute (6) Elevated LFTs Status: Acute
[2018-06-19] MEDS ORDERED: Ipratropium 0.02% Inhal Soln (0.5 mg/2.5 ml) UD IH SCH (13:15)
--- NOTE | 2018-06-19 23:28 | CP.PCM.CON ---
History of Present Illness - History of Present Illness History of Present Illness: ID consulted for bacteremia source unclear ' 77-year-old female with past medical history significant for hypertension on carvedilol hypothyroidism hyperlipidemia COPD presented to the emergency room with complaint of diffuse weakness patient apparently was scheduled for a PET scan by Dr. Vásquez for elevated ESR woke up in the morning he had diffuse diaphoresis and generalized weakness on presentation to the ER was noted to be in new onset atrial fibrillation y. Review of Systems - Review of Systems All systems: reviewed and no additional remarkable complaints except - Constitutional Constitutional: As Per HPI - EENT Eyes: absent: As Per HPI, Blind Spots, Blurred Vision, Change in Vision, Decreased Night Vision, Diplopia, Discharge, Dry Eye, Exophthalmos, Floaters, Irritation, Itchy Eyes, Loss of Peripheral Vision, Pain, Photophobia, Requires Corrective Lenses, Sees Flashes, Spots in Vision, Tunnel Vision, Other Visual Disturbances, Loss of Vision, Other Ears: absent: As Per HPI, Decreased Hearing, Ear Discharge, Ear Pain, Tinnitus, Abnormal Hearing, Disequilibrium, Dizziness, Other Nose/Mouth/Throat: absent: As Per HPI, Epistaxis, Nasal Congestion, Nasal Discharge, Nasal Obstruction, Nasal Trauma, Nose Pain, Post Nasal Drip, Sinus Pain, Sinus Pressure, Bleeding Gums, Change in Voice, Dental Pain, Dry Mouth, Dysphagia, Halitosis, Hoarsness, Lip Swelling, Mouth Lesions, Mouth Pain, Odynophagia, Sore Throat, Throat Swelling, Tongue Swelling, Facial Pain, Neck Pain, Neck Mass, Other - Breasts Breasts: absent: As Per HPI, Change in Shape, Mass, Pain, Nipple Discharge, Nipple Inversion, Skin Changes, Swelling, Other - Cardiovascular Cardiovascular: As Per HPI - Respiratory Respiratory: As Per HPI - Gastrointestinal Gastrointestinal: absent: As Per HPI, Abdominal Pain, Belching, Bloating, Change in Bowel Habits, Change in Stool Character, Coffee Ground Emesis, Constipation, Cramping, Diarrhea, Dyspepsia, Dysphagia, Early Satiety, Excessive Flatus, Fecal Incontinence, Heartburn, Hematemesis, Hematochezia, Loose Stools, Melena, Nausea, Odynophagia, Temesmus, Vomiting, Other - Genitourinary Genitourinary: absent: As Per HPI, Change in Urinary Stream, Difficulty Urinating, Dysuria, Flank Pain, Hematuria, Pyuria, Nocturia, Urinary Incontinence, Urinary Frequency, Urinary Hesitance, Urinary Urgency, Voiding Freq/Small Amts, Freq UTI, Hx Renal/Bladder Calculi, Hx /Renal Surgery, Bladder Distension, Other - Reproductive: Female Reproductive:Female: absent: As Per HPI, Amenorrhea, Amenorrhea/ Control, Currently Menstual, Cycle <21 Days, Cycle >35 Days, Cycle Variable, Menses 1-7 Days, Menses >/= 8 Days, Menses Variable, Cycle > 4 Weeks Between, No Menses for 6 Months, Heavy Menses, Light Menses, Normal Menses, Spotting Between Cycles, S/P Hysterectomy, Menopausal, Post Menopausal, Premenarche, Abnormal Vaginal Bleeding, Dysmenorrhea, Dyspareunia, Genital Lesions, Genital Pruritis, Pelvic Pain, Prolapse Symptoms, Sexual Dysfunction, Vaginal Discharge, Vaginal Dryness, Vaginal Odor, Vaginal Pruritis, Other - Menstruation Menstruation: absent: As Per HPI, Amenorrhea, Amenorrhea/ Control, Currently Menstual, Cycle <21 Days, Cycle >35 Days, Cycle Variable, Menses 1-7 Days, Menses >/= 8 Days, Menses Variable, Cycle > 4 Weeks Between, No Menses for 6 Months, Heavy Menses, Light Menses, Normal Menses, Spotting Between Cycles, S/P Hysterectomy, Menopausal, Post Menopausal, Premenarche, Abnormal Vaginal Bleeding, Dysmenorrhea, Other - Musculoskeletal Musculoskeletal: absent: As Per HPI, Abnormal Gait, Arthralgias, Atrophy, Back Pain, Deformity, Joint Swelling, Limited Range of Motion, Loss of Height, Muscle Cramps, Muscle Weakness, Myalgias, Neck Pain, Numbness, Radiating Pain into Limb, Stiffness, Tingling, Other - Integumentary Integumentary: absent: As Per HPI, Acne, Alopecia, Bleeding Lesions, Change in Hair, Change in Nails, Change in Pigmentation, Changing Lesions, Dry Skin, Erythema, Furuncle, Hirsutism, Lesions, New Lesions, Non-Healing Lesions, Photosensitivity, Pruritus, Rash, Skin Pain, Skin Ulcer, Sores, Striae, Swe lling, Unusual Bruising, Wounds, Jaundice, Other - Neurological Neurological: absent: As Per HPI, Abnormal Gait, Abnormal Hearing, Abnormal Movements, Abnormal Speech, Behavioral Changes, Burning Sensations, Confusion, Convulsions, Disequilibrium, Dizziness, Numbness, Focal Weakness, Frequent Falls, Headaches, Lack of Coordination, Loss of Vision, Memory Loss, Paresthesias, Radicular Pain, Restless Legs, Sensory Deficit, Syncope, Tingling, Tremor, Vertigo, Weakness, Other Visual Disturbances, Other - Psychiatric Psychiatric: absent: As Per HPI, Abnormal Sleep Pattern, Anhedonia, Anxiety, Auditory Hallucinations, Behavioral Changes, Change in Appetite, Change in Libido, Confusion, Depression, Difficulty Concentrating, Hallucinations, Homicidal Ideation, Hopelessness, Irritability, Memory Loss, Mood Swings, Panic Attacks, Paranoia, Suicidal Ideation, Visual Hallucinations, Tactile Hallucinations, Other - Endocrine Endocrine: absent: As Per HPI, Change in Body Appearance, Change in Libido, Cold Intolorance, Deepening of Voice, Excessive Sweating, Fatigue, Flushing, Heat Intolorance, Increase in Ring/Shoe/Hat Size, Palpitations, Polydipsia, Polyphagia, Polyuria, Other - Hematologic/Lymphatic Hematologic: absent: As Per HPI, Easy Bleeding, Easy Bruising, Lymphadenopathy, Other Past Patient History - Past Medical History & Family History Past Medical History?: Yes - Past Social History Smoking Status: Never Smoked - CARDIAC Hx Hypertension: Yes - PULMONARY Hx Chronic Obstructive Pulmonary Disease (COPD): Yes - ENDOCRINE/METABOLIC Hx Hyperthyroidism: Yes - MUSCULOSKELETAL/RHEUMATOLOGICAL Hx Falls: No - PSYCHIATRIC Hx Substance Use: No - SURGICAL HISTORY Hx Cholecystectomy: Yes Hx Thyroidectomy: Yes - ANESTHESIA Hx Anesthesia: No Hx Anesthesia Reactions: No Meds Allergies/Adverse Reactions: Allergies Allergy/AdvReac Type Severity Reaction Status Date / Time No Known Allergies Allergy Unverified 06/17/18 08:25 - Medications Medications: Current Medications Amlodipine Besylate (Norvasc) 5 mg PO DAILY [facility] Last Admin: 06/19/18 10:30 Dose: 5 mg Arformoterol Tartrate (Brovana) 15 mcg INH RQ12@1000,2200 [facility] Last Admin: 06/19/18 10:20 Dose: 15 mcg Aspirin (Aspirin Chewable) 81 mg PO DAILY [facility] Last Admin: 06/19/18 10:28 Dose: 81 mg Benzonatate (Tessalon Perles) 200 mg PO BID [facility] Last Admin: 06/19/18 17:23 Dose: 200 mg Carvedilol (Coreg) 25 mg PO DAILY [facility] Last Admin: 06/19/18 10:30 Dose: 25 mg Sodium Chloride (Sodium Chloride 0.9%) 1,000 mls @ 100 mls/hr IV .Q10H [facility] Last Admin: 06/19/18 11:15 Dose: Not Given Ceftriaxone Sodium 1 gm/ (Sodium Chloride) 100 mls @ 100 mls/hr IVPB DAILY [facility]; Protocol Last Admin: 06/19/18 10:28 Dose: 100 mls/hr Ipratropium [place] (Atrovent) 1 mg IH RBID [facility] Levothyroxine Sodium (Synthroid) 25 mcg PO 0630 [facility] Last Admin: 06/19/18 09:02 Dose: 25 mcg Multivitamins/Minerals (Therapeutic-M Tab) 1 tab PO DAILY [facility] Last Admin: 06/19/18 10:28 Dose: 1 tab Rivaroxaban (Xarelto) 15 mg PO DAILY@1800 [facility] Last Admin: 06/19/18 17:23 Dose: 15 mg Rosuvastatin Calcium (Crestor) 5 mg PO HS [facility] Last Admin: 06/19/18 21:11 Dose: 5 mg Physical Exam - Constitutional Appears: Well, Non-toxic, Chronically Ill - Head Exam Head Exam: ATRAUMATIC, NORMAL INSPECTION, NORMOCEPHALIC - Eye Exam Eye Exam: EOMI, Normal appearance, PERRL Pupil Exam: NORMAL ACCOMODATION, PERRL - ENT Exam ENT Exam: Mucous Membranes Moist, Normal Exam - Neck Exam Neck exam: Positive for: Normal Inspection - Respiratory Exam Respiratory Exam: Clear to Auscultation Bilateral, NORMAL BREATHING PATTERN - Cardiovascular Exam Cardiovascular Exam: REGULAR RHYTHM - GI/Abdominal Exam GI & Abdominal Exam: Normal Bowel Sounds, Soft. absent: Tenderness - Rectal Exam Rectal Exam: Deferred - Extremities Exam Extremities exam: Positive for: normal inspection - Back Exam Back exam: NORMAL INSPECTION - Neurological Exam Neurological exam: Alert, CN II-XII Intact, Normal Gait, Oriented x3, Reflexes Normal - Psychiatric Exam Psychiatric exam: Normal Affect, Normal Mood - Skin Skin Exam: Dry, Intact, Normal Color, Warm Results - Vital Signs Recent Vital Signs: Last Vital Signs Temp 98.3 F 06/19/18 15:35 Pulse 96 H 06/19/18 15:50 Resp 20 06/19/18 15:35 BP 124/65 06/19/18 15:35 Pulse Ox 99 06/19/18 15:35 - Labs Result Diagrams: 06/19/18 07:17 06/19/18 07:17 Labs: Laboratory Results - last 24 hr 06/18/18 06/19/18 06/19/18 23:31 07:17 07:17 WBC 4.7 L RBC 2.95 L Hgb 10.5 L Hct 30.9 L MCV 104.8 H MCH 35.5 H MCHC 33.9 RDW 13.2 Plt Count 146 MPV 9.0 APTT Sodium 144 Potassium 3.7 Chloride 112 H Carbon Dioxide 23 Anion Gap 13 BUN 7 Creatinine 0.8 Est GFR ( Amer) > 60 Est GFR (Non-Af Amer) > 60 Random Glucose 88 D Calcium 8.2 L Transferrin Ferritin Procalcitonin Free T4 TSH 3rd Generation 5.74 H Urine Color Straw Urine Clarity Clear Urine pH 6.0 Ur Specific [place] 1.005 Urine Protein Negative Urine Glucose (UA) Normal Urine Ketones Negative Urine Blood Negative Urine Nitrate Negative Urine Bilirubin Negative Urine Urobilinogen Normal Ur Leukocyte Esterase 1+ H Urine WBC (Auto) 2 Urine RBC (Auto) < 1 Ur Squamous Epith Cells < 1 Urine Bacteria Rare Hepatitis A IgM Ab Hep Bs Antigen Hep B Core IgM Ab Hepatitis C Antibody 06/19/18 06/19/18 06/19/18 07:17 07:17 07:20 WBC RBC Hgb Hct MCV MCH MCHC RDW Plt Count MPV APTT 74.0 H Sodium Potassium Chloride Carbon Dioxide Anion Gap BUN Creatinine Est GFR ( Amer) Est GFR (Non-Af Amer) Random Glucose Calcium Transferrin Ferritin Procalcitonin 0.09 L Free T4 TSH 3rd Generation Urine Color Urine Clarity Urine pH Ur Specific [place] Urine Protein Urine Glucose (UA) Urine Ketones Urine Blood Urine Nitrate Urine Bilirubin Urine Urobilinogen Ur Leukocyte Esterase Urine WBC (Auto) Urine RBC (Auto) Ur Squamous Epith Cells Urine Bacteria Hepatitis A IgM Ab Negative Hep Bs Antigen Negative Hep B Core IgM Ab Negative Hepatitis C Antibody Negative 06/19/18 06/19/18 06/19/18 13:46 20:12 20:12 WBC RBC Hgb Hct MCV MCH MCHC RDW Plt Count MPV APTT Sodium Potassium Chloride Carbon Dioxide Anion Gap BUN Creatinine Est GFR ( Amer) Est GFR (Non-Af Amer) Random Glucose Calcium Transferrin 190.53 L Ferritin 164.0 Procalcitonin Free T4 1.30 TSH 3rd Generation Urine Color Urine Clarity Urine pH Ur Specific [place] Urine Protein Urine Glucose (UA) Urine Ketones Urine Blood Urine Nitrate Urine Bilirubin Urine Urobilinogen Ur Leukocyte Esterase Urine WBC (Auto) Urine RBC (Auto) Ur Squamous Epith Cells Urine Bacteria Hepatitis A IgM Ab Hep Bs Antigen Hep B Core IgM Ab Hepatitis C Antibody Assessment & Plan (1) Bacteremia Status: Acute (2) Afib Status: Acute (3) Dyslipidemia Status: Acute (4) Elevated LFTs Status: Acute (5) HTN (hypertension) Status: Acute (6) Weakness Status: Acute - Assessment and Plan (Free Text) Assessment: await final cultures cont =iv antibiotics
[2018-06-20] MEDS: Sodium Chloride 0.9% 1,000 ML IV SCH ×2 (02:40→10:56)
--- NOTE | 2018-06-20 03:38 | CARD ---
APPROVED REPORT Date of service: 06/17/2018 EKG Measurement Heart [id number] <Conclusion> Atrial fibrillation Abnormal ECG
[2018-06-20] MEDS: Levothyroxine 25 MCG TAB PO SCH (05:56)
[2018-06-20 07:25] LABS: BASO % 0.5 % (0.0-2.0); EOS # 0.2 K/uL (0.0-0.7); EOS % 3.1 % (0.0-4.0); HEMOGLOBIN 11.2 g/dL (11.0-16.0); LYMPH # 1.2 K/uL (1.0-4.3); LYMPH % 24.2 % (20.0-40.0); MEAN CELL VOLUME 105.4 fL (81.0-99.0); MEAN CORPUSCULAR HEMOGLOBIN 35.5 pg (27.0-31.0); MEAN CORPUSCULAR HGB CONC 33.7 g/dL (33.0-37.0); MEAN PLATELET VOLUME 8.4 fL (7.2-11.7); MONO # 0.6 K/uL (0.0-0.8); MONO % 12.2 % (0.0-10.0); RBC 3.14 Mil/uL (3.80-5.20); RED CELL DISTRIBUTION WIDTH 13.4 % (11.5-14.5)
[2018-06-20 07:32] VITALS: O2SAT 99
[2018-06-20 07:48] LABS: ALB/GLOB RATIO 1.1 (1.0-2.1); ALBUMIN 3.7 g/dL (3.5-5.0); ALT/SGPT 52 U/L (9-52); AST/SGOT 46 U/L (14-36); BLOOD UREA NITROGEN 6 mg/dL (7-17); CALCIUM 8.2 mg/dl (8.6-10.4); GFR NON-AFRICAN AMERICAN > 60
[2018-06-20] MEDS: Arformoterol 15 mcg/2 ml Inh Sol INH SCH (08:18)
--- NOTE | 2018-06-20 09:05 | CP.PCM.CON ---
<Kenyatta Rod - Last Filed: 06/20/18 09:00> History of Present Illness - History of Present Illness History of Present Illness: GI Fellow PGY5 Consult Note This 77 year old female with PMHx of hypertension (takes carvedilol), thyroid issues, hyperlipidemia, Fatty liver who presents to ED with complaint of weakness. In the ER pt was found to be in Afib and Hypertensive. Pt is being seen by cardiology and Vitals are stable and stress test is negative. GI was consulted for elevated LFTs. No prior records for review. Per pt she has fatty liver disease and her LFTs are elevated. Denies any complications of liver disease including jaundice. She says she recently had lab work with PCP Dr. Eugene langford. EGD/Colonoscopy per pt done 3yrs ago were normal at [facility] [place]. ROS: A 12pt ROS was negative except as above PmHx: As stated in HPI PsHx: Denies SH: Denies tobacco, drugs, etoh FH: +lung cancer in sister Past Patient History - Past Medical History & Family History Past Medical History?: Yes - Past Social History Smoking Status: Never Smoked - CARDIAC Hx Hypertension: Yes - PULMONARY Hx Chronic Obstructive Pulmonary Disease (COPD): Yes - ENDOCRINE/METABOLIC Hx Hyperthyroidism: Yes - MUSCULOSKELETAL/RHEUMATOLOGICAL Hx Falls: No - PSYCHIATRIC Hx Substance Use: No - SURGICAL HISTORY Hx Cholecystectomy: Yes Hx Thyroidectomy: Yes - ANESTHESIA Hx Anesthesia: No Hx Anesthesia Reactions: No Meds Allergies/Adverse Reactions: Allergies Allergy/AdvReac Type Severity Reaction Status Date / Time No Known Allergies Allergy Unverified 06/17/18 08:25 - Medications Medications: Current Medications Amlodipine Besylate (Norvasc) 5 mg PO DAILY [facility] Last Admin: 06/19/18 10:30 Dose: 5 mg Arformoterol Tartrate (Brovana) 15 mcg INH RQ12@1000,2200 [facility] Last Admin: 06/20/18 08:18 Dose: 15 mcg Aspirin (Aspirin Chewable) 81 mg PO DAILY [facility] Last Admin: 06/19/18 10:28 Dose: 81 mg Benzonatate (Tessalon Perles) 200 mg PO BID [facility] Last Admin: 06/19/18 17:23 Dose: 200 mg Carvedilol (Coreg) 25 mg PO DAILY [facility] Last Admin: 06/19/18 10:30 Dose: 25 mg Sodium Chloride (Sodium Chloride 0.9%) 1,000 mls @ 100 mls/hr IV .Q10H [facility] Last Admin: 06/20/18 02:40 Dose: 100 mls/hr Ceftriaxone Sodium 1 gm/ (Sodium Chloride) 100 mls @ 100 mls/hr IVPB DAILY [facility]; Protocol Last Admin: 06/19/18 10:28 Dose: 100 mls/hr Ipratropium [place] (Atrovent) 1 mg IH RBID [facility] Last Admin: 06/20/18 08:19 Dose: 1 mg Levothyroxine Sodium (Synthroid) 25 mcg PO 0630 [facility] Last Admin: 06/20/18 05:56 Dose: 25 mcg Multivitamins/Minerals (Therapeutic-M Tab) 1 tab PO DAILY [facility] Last Admin: 06/19/18 10:28 Dose: 1 tab Rivaroxaban (Xarelto) 15 mg PO DAILY@1800 [facility] Last Admin: 06/19/18 17:23 Dose: 15 mg Rosuvastatin Calcium (Crestor) 5 mg PO HS [facility] Last Admin: 06/19/18 21:11 Dose: 5 mg Physical Exam - Constitutional Appears: Non-toxic, No Acute Distress - Head Exam Head Exam: ATRAUMATIC, NORMAL INSPECTION, NORMOCEPHALIC - Eye Exam Eye Exam: EOMI, Normal appearance, PERRL - ENT Exam ENT Exam: Mucous Membranes Moist, Normal Exam - Neck Exam Neck exam: Positive for: Normal Inspection - Respiratory Exam Respiratory Exam: Clear to Auscultation Bilateral, NORMAL BREATHING PATTERN - Cardiovascular Exam Cardiovascular Exam: REGULAR RHYTHM, RRR, +S1, +S2 - GI/Abdominal Exam GI & Abdominal Exam: Normal Bowel Sounds, Soft. absent: Diminished Bowel Sound s, Distended, Guarding, Organomegaly, Tenderness - Rectal Exam Rectal Exam: Deferred - Extremities Exam Extremities exam: Positive for: full ROM, normal inspection - Back Exam Back exam: FULL ROM, NORMAL INSPECTION - Neurological Exam Neurological exam: Alert, Oriented x3 - Psychiatric Exam Psychiatric exam: Normal Affect, Normal Mood - Skin Skin Exam: Dry, Intact, Normal Color, Warm Results - Vital Signs Recent Vital Signs: Last Vital Signs Temp 97.9 F 06/20/18 07:10 Pulse 102 H 06/20/18 08:38 Resp 20 06/20/18 07:10 BP 143/76 06/20/18 07:10 Pulse Ox 99 06/20/18 07:10 - Labs Result Diagrams: 06/20/18 07:06 06/20/18 07:06 Labs: Laboratory Results - last 24 hr 06/18/18 06/19/18 06/19/18 23:31 13:46 20:12 WBC RBC Hgb Hct MCV MCH MCHC RDW Plt Count MPV Neut % (Auto) Lymph % (Auto) Bowman % (Auto) Eos % (Auto) Baso % (Auto) Neut # (Auto) Lymph # (Auto) Bowman # (Auto) Eos # (Auto) Baso # (Auto) Sodium Potassium Chloride Carbon Dioxide Anion Gap BUN Creatinine Est GFR ( Amer) Est GFR (Non-Af Amer) Random Glucose Calcium Transferrin 190.53 L Ferritin Total Bilirubin AST ALT Alkaline Phosphatase Total Protein Albumin Globulin Albumin/Globulin Ratio Free T4 1.30 Urine Color Straw Urine Clarity Clear Urine pH 6.0 Ur Specific [place] 1.005 Urine Protein Negative Urine Glucose (UA) Normal Urine Ketones Negative Urine Blood Negative Urine Nitrate Negative Urine Bilirubin Negative Urine Urobilinogen Normal Ur Leukocyte Esterase 1+ H Urine WBC (Auto) 2 Urine RBC (Auto) < 1 Ur Squamous Epith Cells < 1 Urine Bacteria Rare 06/19/18 06/20/18 06/20/18 20:12 07:06 07:06 WBC 5.0 RBC 3.14 L Hgb 11.2 Hct 33.1 L MCV 105.4 H MCH 35.5 H MCHC 33.7 RDW 13.4 Plt Count 153 MPV 8.4 Neut % (Auto) 60.0 Lymph % (Auto) 24.2 Bowman % (Auto) 12.2 H Eos % (Auto) 3.1 Baso % (Auto) 0.5 Neut # (Auto) 3.0 Lymph # (Auto) 1.2 Bowman # (Auto) 0.6 Eos # (Auto) 0.2 Baso # (Auto) 0.0 Sodium 142 Potassium 3.6 Chloride 108 H Carbon Dioxide 22 Anion Gap 15 BUN 6 L Creatinine 0.8 Est GFR ( Amer) > 60 Est GFR (Non-Af Amer) > 60 Random Glucose 83 Calcium 8.2 L Transferrin Ferritin 164.0 Total Bilirubin 0.5 AST 46 H D ALT 52 D Alkaline Phosphatase 65 Total Protein 7.1 Albumin 3.7 Globulin 3.4 Albumin/Globulin Ratio 1.1 Free T4 Urine Color Urine Clarity Urine pH Ur Specific [place] Urine Protein Urine Glucose (UA) Urine Ketones Urine Blood Urine Nitrate Urine Bilirubin Urine Urobilinogen Ur Leukocyte Esterase Urine WBC (Auto) Urine RBC (Auto) Ur Squamous Epith Cells Urine Bacteria Assessment & Plan - Assessment and Plan (Free Text) Assessment: 1. Afib 2. Hypotension 3. elevated LFTs 4. Hx of fatty liver 5. Constipation -Pt with elevated LFTs, pt reports hx of fatty liver with slightly elevated LFTs as an outpatient -Currently evaluation multifactorial from underlying fatty liver and hypotension from new onset Afib -BP/Hr improved -LFTs trending down -Abd US ordered, read pending -Hepatitis panel ordered and negative -Autoimmune markers ordered pending -Miralax for constipation -Call placed to pt's PCP Dr. Reynoso, awaiting call back to discuss recent labs/LFTs -Will continue to follow pt <Ronald Moeller - Last Filed: 06/20/18 10:55> Meds - Medications Medications: Current Medications Amlodipine Besylate (Norvasc) 5 mg PO DAILY [facility] Last Admin: 06/19/18 10:30 Dose: 5 mg Arformoterol Tartrate (Brovana) 15 mcg INH RQ12@1000,2200 [facility] Last Admin: 06/20/18 08:18 Dose: 15 mcg Aspirin (Aspirin Chewable) 81 mg PO DAILY [facility] Last Admin: 06/19/18 10:28 Dose: 81 mg Benzonatate (Tessalon Perles) 200 mg PO BID [facility] Last Admin: 06/19/18 17:23 Dose: 200 mg Carvedilol (Coreg) 25 mg PO DAILY [facility] Last Admin: 06/19/18 10:30 Dose: 25 mg Ceftriaxone Sodium 1 gm/ (Sodium Chloride) 100 mls @ 100 mls/hr IVPB DAILY [facility]; Protocol Last Admin: 06/19/18 10:28 Dose: 100 mls/hr Ipratropium [place] (Atrovent) 1 mg IH RBID [facility] Last Admin: 06/20/18 08:19 Dose: 1 mg Levothyroxine Sodium (Synthroid) 25 mcg PO 0630 [facility] Last Admin: 06/20/18 05:56 Dose: 25 mcg Multivitamins/Minerals (Therapeutic-M Tab) 1 tab PO DAILY [facility] Last Admin: 06/19/18 10:28 Dose: 1 tab Polyethylene Glycol (Miralax) 17 gm PO DAILY [facility] Rivaroxaban (Xarelto) 15 mg PO DAILY@1800 [facility] Last Admin: 06/19/18 17:23 Dose: 15 mg Rosuvastatin Calcium (Crestor) 5 mg PO HS [facility] Last Admin: 06/19/18 21:11 Dose: 5 mg Results - Vital Signs Recent Vital Signs: Last Vital Signs Temp 97.9 F 06/20/18 07:10 Pulse 102 H 06/20/18 08:38 Resp 20 06/20/18 07:10 BP 143/76 06/20/18 07:10 Pulse Ox 99 06/20/18 07:10 - Labs Result Diagrams: 06/20/18 07:06 06/20/18 07:06 Labs: Laboratory Results - last 24 hr 06/18/18 06/19/18 06/19/18 23:31 13:46 20:12 WBC RBC Hgb Hct MCV MCH MCHC RDW Plt Count MPV Neut % (Auto) Lymph % (Auto) Bowman % (Auto) Eos % (Auto) Baso % (Auto) Neut # (Auto) Lymph # (Auto) Bowman # (Auto) Eos # (Auto) Baso # (Auto) Sodium Potassium Chloride Carbon Dioxide Anion Gap BUN Creatinine Est GFR ( Amer) Est GFR (Non-Af Amer) Random Glucose Calcium Transferrin 190.53 L Ferritin Total Bilirubin AST ALT Alkaline Phosphatase Total Protein Albumin Globulin Albumin/Globulin Ratio Free T4 1.30 Urine Color Straw Urine Clarity Clear Urine pH 6.0 Ur Specific [place] 1.005 Urine Protein Negative Urine Glucose (UA) Normal Urine Ketones Negative Urine Blood Negative Urine Nitrate Negative Urine Bilirubin Negative Urine Urobilinogen Normal Ur Leukocyte Esterase 1+ H Urine WBC (Auto) 2 Urine RBC (Auto) < 1 Ur Squamous Epith Cells < 1 Urine Bacteria Rare 06/19/18 06/20/18 06/20/18 20:12 07:06 07:06 WBC 5.0 RBC 3.14 L Hgb 11.2 Hct 33.1 L MCV 105.4 H MCH 35.5 H MCHC 33.7 RDW 13.4 Plt Count 153 MPV 8.4 Neut % (Auto) 60.0 Lymph % (Auto) 24.2 Bowman % (Auto) 12.2 H Eos % (Auto) 3.1 Baso % (Auto) 0.5 Neut # (Auto) 3.0 Lymph # (Auto) 1.2 Bowman # (Auto) 0.6 Eos # (Auto) 0.2 Baso # (Auto) 0.0 Sodium 142 Potassium 3.6 Chloride 108 H Carbon Dioxide 22 Anion Gap 15 BUN 6 L Creatinine 0.8 Est GFR ( Amer) > 60 Est GFR (Non-Af Amer) > 60 Random Glucose 83 Calcium 8.2 L Transferrin Ferritin 164.0 Total Bilirubin 0.5 AST 46 H D ALT 52 D Alkaline Phosphatase 65 Total Protein 7.1 Albumin 3.7 Globulin 3.4 Albumin/Globulin Ratio 1.1 Free T4 Urine Color Urine Clarity Urine pH Ur Specific [place] Urine Protein Urine Glucose (UA) Urine Ketones Urine Blood Urine Nitrate Urine Bilirubin Urine Urobilinogen Ur Leukocyte Esterase Urine WBC (Auto) Urine RBC (Auto) Ur Squamous Epith Cells Urine Bacteria Attending/Attestation - Attestation I have personally seen and examined this patient.: Yes I have fully participated in the care of the patient.: Yes I have reviewed all pertinent clinical information: Yes Notes (Text): 06/20/18 10:51 I have seen and examined patient with GI fellow. Agree with above documentation with the following additions. In brief, this is a 77 year old female with history of HTN, hyperlipidmia, thyroid disease, who presented to hospital with complaint of progressive weakness. In ER was found to be in atrial fibrillation and is currently undergoing ongoing cardiac management. GI called for evaluation of elevated LFTs. She reports a history of fatty liver in the past but denies abdominal pain, nausea, vomiting, fever/chills, weight loss, change in bowel habits, jaundice, pruritis, excessive ETOH/tylenol use. She had an EGD/colonoscopy at [facility] [place] 3 years ago which were normal as per patient. HTN Hyperlipidemia Atrial fibrillation, new onset Transaminitis - Diet as tolerated - Abdominal US reviewed by me showing fatty liver without focal hepatic lesions - Viral hepatitis panel negative, obtain autoimmune panel - LFTs almost normalized today as compared to previous day, possibly partially related to drug reaction vs cardiac arrhythmia - Obtain copies of recent bloodwork from PMD Dr. Reynoso - Suggest additional outpatient follow up with continued monitoring of LFTs. No acute planned GI intervention, will sign off case. Please reconsult as necessary, thank you.
--- NOTE | 2018-06-20 09:56 | US ---
Date of service: 06/19/2018 HISTORY: elevated LFTs COMPARISON: None. TECHNIQUE: Sonographic evaluation of the abdomen. FINDINGS: LIVER: Measures 11.9 cm. Diffusely increased echogenicity of the liver parenchyma. Consistent with fatty infiltration. Smooth contour. No mass. No biliary ductal dilatation. GALLBLADDER: Status post cholecystectomy COMMON BILE DUCT: Measures 5 mm. No stones. No dilatation. PANCREAS: Unremarkable RIGHT KIDNEY: Measures 8.4cm. Normal echogenicity. No calculus, mass, or hydronephrosis. LEFT KIDNEY: Measures 8.0cm. Normal echogenicity. No calculus, mass, or hydronephrosis. SPLEEN: Normal in size and contour. No mass. AORTA: No aneurysmal dilatation. IVC: Unremarkable. OTHER FINDINGS: None. IMPRESSION: Fatty liver. Status post cholecystectomy. Otherwise unremarkable examination. The preliminary findings for this examination were reported by [facility] at 9:41 p.m. on 06/19/2018. There is concurrence of this report with the preliminary findings.
[2018-06-20] MEDS ORDERED: POLYETHYLENE GLYCOL 3350 17 GM/Dose PACKET PO SCH (10:00)
[2018-06-20] MEDS: Multivitamin With Minerals Tab PO SCH (10:49)
[2018-06-20 16:02] VITALS: BP 130/75; PULSE 85; TEMP 98.3
--- NOTE | 2018-06-20 16:41 | CP.PCM.PN ---
Subjective - Date & Time of Evaluation Date of Evaluation: 06/20/18 Time of Evaluation: 16:40 - Subjective Subjective: LFT"s trending down cardiac stable Objective - Vital Signs/Intake and Output Vital Signs (last 24 hours): Temp Pulse Resp BP Pulse Ox 98.3 F 85 20 130/75 99 06/20/18 15:42 06/20/18 15:42 06/20/18 15:42 06/20/18 15:42 06/20/18 15:42 Intake and Output: 06/20/18 06/20/18 06:59 18:59 Intake Total 1400 Balance 1400 - Medications Medications: Current Medications Amlodipine Besylate (Norvasc) 5 mg PO DAILY [facility] Last Admin: 06/20/18 10:49 Dose: 5 mg Arformoterol Tartrate (Brovana) 15 mcg INH RQ12@1000,2200 [facility] Last Admin: 06/20/18 08:18 Dose: 15 mcg Aspirin (Aspirin Chewable) 81 mg PO DAILY [facility] Last Admin: 06/20/18 10:49 Dose: 81 mg Benzonatate (Tessalon Perles) 200 mg PO BID [facility] Last Admin: 06/20/18 10:49 Dose: 200 mg Carvedilol (Coreg) 25 mg PO DAILY [facility] Last Admin: 06/20/18 10:50 Dose: 25 mg Ceftriaxone Sodium 1 gm/ (Sodium Chloride) 100 mls @ 100 mls/hr IVPB DAILY [facility]; Protocol Last Admin: 06/20/18 10:47 Dose: 100 mls/hr Ipratropium [place] (Atrovent) 1 mg IH RBID [facility] Last Admin: 06/20/18 08:19 Dose: 1 mg Levothyroxine Sodium (Synthroid) 25 mcg PO 0630 [facility] Last Admin: 06/20/18 05:56 Dose: 25 mcg Multivitamins/Minerals (Therapeutic-M Tab) 1 tab PO DAILY [facility] Last Admin: 06/20/18 10:49 Dose: 1 tab Polyethylene Glycol (Miralax) 17 gm PO DAILY [facility] Last Admin: 06/20/18 10:55 Dose: 17 gm Rivaroxaban (Xarelto) 15 mg PO DAILY@1800 [facility] Last Admin: 06/19/18 17:23 Dose: 15 mg Rosuvastatin Calcium (Crestor) 5 mg PO HS [facility] Last Admin: 05/08/19 21:11 Dose: 5 mg - Labs Labs: 06/20/18 07:06 06/20/18 07:06 PT 12.1 SECONDS (9.7-12.2) 06/17/18 10:08 INR 1.1 06/17/18 10:08 APTT 74.0 SECONDS (21-34) H 06/19/18 07:17 - Constitutional Appears: Well - Head Exam Head Exam: ATRAUMATIC, NORMAL INSPECTION, NORMOCEPHALIC - Eye Exam Eye Exam: EOMI, Normal appearance, PERRL Pupil Exam: NORMAL ACCOMODATION, PERRL - ENT Exam ENT Exam: Mucous Membranes Moist, Normal Exam - Neck Exam Neck Exam: Full ROM, Normal Inspection. absent: Lymphadenopathy - Respiratory Exam Respiratory Exam: Clear to Ausculation Bilateral, NORMAL BREATHING PATTERN - Cardiovascular Exam Cardiovascular Exam: REGULAR RHYTHM, +S1, +S2. absent: Murmur - GI/Abdominal Exam GI & Abdominal Exam: Soft, Normal Bowel Sounds. absent: Tenderness - Extremities Exam Extremities Exam: Full ROM, Normal Capillary Refill, Normal Inspection. absent: Joint Swelling, Pedal Edema - Back Exam Back Exam: NORMAL INSPECTION - Neurological Exam Neurological Exam: Alert, Awake, CN II-XII Intact, Normal Gait, Oriented x3 - Psychiatric Exam Psychiatric exam: Normal Affect, Normal Mood - Skin Skin Exam: Dry, Intact, Normal Color, Warm Assessment and Plan (1) Afib Assessment & Plan: stable on bb and xarelto stable to dc home outpt f/u in 2 weeks Status: Acute (2) HTN (hypertension) Assessment & Plan: coreg, norvasc Status: Acute (3) Dyslipidemia Assessment & Plan: statins Status: Acute (4) Diaphoresis Status: Acute (5) Weakness Status: Acute (6) Elevated LFTs Status: Acute
--- NOTE | 2018-06-20 17:20 | CP.PCM.PN ---
Subjective - Date & Time of Evaluation Date of Evaluation: 06/20/18 Time of Evaluation: 13:00 - Subjective Subjective: Patient seen today , states feels better, denies any chest pain, sob, dizziness, palpitations a febrile labs and vss - stable HR - controlled s/p stress test negative heaparin drip d/c an d started on xeralto lft - IMPROVED - AST/ALT- 46/52 repeat blood culture- negative x 24 hrs GI seen patient cleared , no further work up cardio cleared fro discharge , f/u in 2 weeks , D/w Dr. Bateman , cleared for discharge home today discharge plan discussed with korin and daughter at bed kamini e Objective - Vital Signs/Intake and Output Vital Signs (last 24 hours): Temp Pulse Resp BP Pulse Ox 98.3 F 85 20 130/75 99 06/20/18 15:42 06/20/18 15:42 06/20/18 15:42 06/20/18 15:42 06/20/18 15:42 Intake and Output: 06/20/18 06/20/18 06:59 18:59 Intake Total 1400 Balance 1400 - Medications Medications: Current Medications Amlodipine Besylate (Norvasc) 5 mg PO DAILY [facility] Last Admin: 06/20/18 10:49 Dose: 5 mg Arformoterol Tartrate (Brovana) 15 mcg INH RQ12@1000,2200 [facility] Last Admin: 06/20/18 08:18 Dose: 15 mcg Aspirin (Aspirin Chewable) 81 mg PO DAILY [facility] Last Admin: 06/20/18 10:49 Dose: 81 mg Benzonatate (Tessalon Perles) 200 mg PO BID [facility] Last Admin: 06/20/18 10:49 Dose: 200 mg Carvedilol (Coreg) 25 mg PO DAILY [facility] Last Admin: 06/20/18 10:50 Dose: 25 mg Ceftriaxone Sodium 1 gm/ (Sodium Chloride) 100 mls @ 100 mls/hr IVPB DAILY [facility]; Protocol Last Admin: 06/20/18 10:47 Dose: 100 mls/hr Ipratropium [place] (Atrovent) 1 mg IH RBID [facility] Last Admin: 06/20/18 08:19 Dose: 1 mg Levothyroxine Sodium (Synthroid) 25 mcg PO 0630 [facility] Last Admin: 06/20/18 05:56 Dose: 25 mcg Multivitamins/Minerals (Therapeutic-M Tab) 1 tab PO DAILY [facility] Last Admin: 06/20/18 10:49 Dose: 1 tab Polyethylene Glycol (Miralax) 17 gm PO DAILY [facility] Last Admin: 06/20/18 10:55 Dose: 17 gm Rivaroxaban (Xarelto) 15 mg PO DAILY@1800 [facility] Last Admin: 06/19/18 17:23 Dose: 15 mg Rosuvastatin Calcium (Crestor) 5 mg PO HS [facility] Last Admin: 06/19/18 21:11 Dose: 5 mg - Labs Labs: 06/20/18 07:06 06/20/18 07:06 PT 12.1 SECONDS (9.7-12.2) 06/17/18 10:08 INR 1.1 06/17/18 10:08 APTT 74.0 SECONDS (21-34) H 06/19/18 07:17
--- NOTE | 2018-06-21 10:25 | PN ---
DATE: 06/19/2018 This progress note has been discussed with Dr. Damon. She is in agreement with the case, the treatment plan. SUBJECTIVE: The patient is a 77-year-old female, who came in with new onset of atrial fibrillation, palpitations and fatigue. She has a past medical history of COPD, osteoporosis, coronary artery disease without stenting, hyperlipidemia. Saw the patient today at the bedside. She was alert and oriented x2-3. The patient appeared in no acute distress. The patient is denying blurred vision, facial pain, numbness, chest pain, palpitations, cough, hemoptysis, hematochezia, fevers or chills. The patient is denying headaches at this time. PHYSICAL EXAMINATION GENERAL: The patient appear chronically ill, in no acute distress. VITAL SIGNS: Temperature of 98.3, pulse rate of 88, blood pressure of 124/65, respiratory rate of 20. The patient is sating at 99% on room air. HEENT: Normocephalic, atraumatic. PERRLA. Mucous membranes moist. NECK: Supple. No thyromegaly. RESPIRATORY: Clear to auscultation, no wheeze, no rhonchi. CARDIOVASCULAR: S1 and S2, no JVD. ABDOMEN: Soft, nondistended. No organomegaly. SKIN: Intact. EXTREMITIES: Moving all extremities. No edema, no cyanosis. NEUROLOGIC: The patient is alert and oriented x2-3. No cognitive deficit. MEDICATIONS: The patient continues on Norvasc, Brovana, aspirin chewable, Tessalon Perles, Coreg, Rocephin, Atrovent, Synthroid, Crestor. LABORATORY DATA: White blood cells of 4.7, hemoglobin of 10.5, hematocrit of 30.9, platelet count of 146. Sodium of 144, potassium of 3.7, BUN of 7, creatinine of 0.8, GFR is 160. Urinalysis is negative for UTI. ASSESSMENT AND PLAN: This is a 37-year-old female, came in with new onset of atrial fibrillation, chronic anemia, chronic obstructive pulmonary disease, hypertension, bronchitis. Reviewed laboratory results. Reviewed CT scan of head. Stress test, the patient being followed by Cardiology. The patient is also being followed by Pulmonology. The patient started Crestor, The patient continues on Coreg, Tessalon Perles, aspirin, IV antibiotics, Synthroid. We will repeat labs. Follow up with Cardiology and Pulmonology. We will follow up, ALL ABOVE NOTED , AGREED WITH E [employer] TREATMENT PLAN , CHART , LABS AND MEDS NOTED . NEW LABS ORDERED , CONT. SAME TREATMENT . WILL F/U Pranay Finley APN Sumi Damon MD [facility]
--- NOTE | 2018-06-25 04:17 | DS ---
The patient was seen and examined at the bedside on . CHIEF COMPLAINT: Dizziness and weakness. HISTORY OF PRESENT ILLNESS: Ms. Mely Hendricks is a 77-year-old female with a history of hypertension, thyroid problem, hypercholesterolemia, COPD, came in to [facility] with dizziness and weakness. Per the patient's daughter, the patient had PET scan scheduled on the day of admission in [facility] with Dr. Vásquez for elevated ESR. We admitted the patient, did CAT scan of the head, stress test done, seen by Dr. Saud Carlos, legal support specialist, Dr. Ronald Moeller, biomedical specialist, Dr. Reynolds, ID. 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 PAST MEDICAL HISTORY: COPD, hypertension, hypercholesterolemia. ALLERGIES: THE PATIENT IS NOT ALLERGIC TO ANY MEDICATIONS. FAMILY HISTORY: Father and mother noncontributory. HABITS: No smoking. No drugs. No ethanol. REVIEW OF SYSTEMS: The patient was seen and examined at the bedside. Looking comfortable. No fever. No chills. No hematuria or hematochezia. No headache or dizziness. No chest pain. No palpitations. LFT trending down, was stable as per Cardiology. PHYSICAL EXAMINATION: VITAL SIGNS: Temperature 98.3, pulse 55, respiratory rate 20, blood pressure 150/75, pulse oximetry 99%. HEENT: Head: Normocephalic and atraumatic. Eyes: PERRLA. Extraocular movements intact. Conjunctivae clear. Nose patent. Mucous membranes moist. NECK: Supple. No carotid bruit. No JVD or thyromegaly. CHEST: Bilaterally symmetrical. HEART: S1 and S2 positive. LUNGS: Clear to auscultation. ABDOMEN: Soft. Bowel sounds present. No organomegaly. EXTREMITIES: No edema. No cyanosis. NEUROLOGIC: The patient is awake and alert. Moving all four extremities. No focal deficits. MEDICATIONS: Nexium 40 mg, Norvasc, Brovana, aspirin, Tessalon Perles, Coreg, Atrovent, Synthroid, MiraLax, Xarelto. LABORATORY DATA: White blood cells 5, hemoglobin 11.2, hematocrit 32.1, and platelets 156. Sodium 140, potassium 3.6, BUN 6, creatinine 0.8, glucose 83. ASSESSMENT AND PLAN: Ms. Mely Hendricks is a 77-year-old lady with hyperchloremia, hypertension, is on Coreg and Norvasc, dyslipidemia, getting statin, diaphoresis, stable, fatigue which is stable, elevated liver function tests, trending down, history of chronic obstructive pulmonary disease, thyroid disease, fatty liver. Gastrointestinal procedure done in [facility]. History of atrial fibrillation, constipation. According to Gastroenterology, elevated liver function test was due to fatty liver. Need outpatient followup. Abdominal ultrasound done. Hepatitis profile done and is negative. Autoimmune marker ordered. MiraLax for constipation given. Gastroenterology called the patient's primary care physician, Dr. Reynoso, talked to them, discharged to home. Follow up as outpatient. Repeat labs. We will follow up. Sumi Damon MD
== END 2018-06-20 17:17 | disposition home or self-care (01) | DRG 309 ==
LOC: C.ER 07:57 → C.9E 10:39 → C.6T 13:33 → C.9E 14:11 → C.6T 14:39
PROVIDERS: ADMIT Internal Medicine; ATTEND Internal Medicine
DX: I48.91 Unspecified atrial fibrillation (principal); R78.81 Bacteremia; J44.9 Chronic obstructive pulmonary disease, unspecified; I10 Essential (primary) hypertension; E78.00 Pure hypercholesterolemia, unspecified; D64.9 Anemia, unspecified; K76.0 Fatty (change of) liver, not elsewhere classified; K59.00 Constipation, unspecified; E03.9 Hypothyroidism, unspecified; Z90.49 Acquired absence of other specified parts of digestive tract